=== PATIENT | female | born 1940 | race Caucasian/White ===

== ENCOUNTER 2021-06-10 14:37 | Inpatient (IN) | payer MEDICARE, BC ==
[~2021-06-10] VITALS: Ht 160 cm; Wt 55.3 kg
--- NOTE | 2021-06-10 15:00 | NUR ---
ASSUME PT CARE, WAS BIBRA, WAS C/O SUDDEN ONSET CHEST PAIN WHILE DRIVING GOINT TO HER PMD APPOINTMENT. 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 GOWNED AND PLACED ON MONITOR. VSS. AWAITING MD BARRETT.
--- NOTE | 2021-06-10 15:01 | NUR ---
IV LINE STARTED BLOOD DRAWN AND SENT TO LAB.
[2021-06-10 15:16] LABS: BASOPHILS % (AUTO) 0.5 % (0.0-2.0); EOSINOPHILS % (AUTO) 0.7 % (0.0-6.0); HEMATOCRIT 41 % (33-45); HEMOGLOBIN 13.6 g/dL (11.5-14.8); LYMPHOCYTES # (AUTO) 1.2 K/uL (0.8-4.8); LYMPHOCYTES % (AUTO) 32.3 % (20.0-44.0); MEAN CORPUSCULAR HGB CONC 33 g/dl (31.0-36.0); MEAN CORPUSCULAR VOLUME 94 fL (82-100); MONOCYTES % (AUTO) 1.2 % (2.0-12.0); NEUTROPHILS # (AUTO) 2.5 K/uL (1.8-8.9); NEUTROPHILS % (AUTO) 65.3 % (43.0-81.0); PLATELET COUNT (AUTO) 223 K/uL (150-450); RED BLOOD CELL COUNT(AUTO) 4.37 MIL/uL (4.0-5.2); WHITE BLOOD COUNT (AUTO) 3.8 K/uL (4.3-11.0)
--- NOTE | 2021-06-10 15:22 | NUR ---
URINE SPECIMEN COLLECTED AND SENT TO LAB.
--- NOTE | 2021-06-10 15:23 | NUR ---
RADIOLOGY AT BEDSIDE FOR CHEST XRAY.
--- NOTE | 2021-06-10 15:41 | NUR ---
DR MUSA AT BEDSIDE FOR EVAL.
[2021-06-10 15:42] LABS: CALCIUM, SERUM 8.6 mg/dL (8.5-10.1); CARBON DIOXIDE 26 mmol/L (21-32); CHLORIDE 100 mmol/L (98-107); CREATININE 0.5 mg/dL (0.6-1.3); GLUCOSE 110 mg/dL (74-106); POTASSIUM 3.7 mmol/L (3.5-5.1); SODIUM SERUM 135 mmol/L (136-145); UREA NITROGEN, BLOOD 19 mg/dL (7-18)
--- NOTE | 2021-06-10 16:26 | NUR ---
Gemini bo in [facility] - 06/10/21 at 1630 by RACHEAL BLOOD SPECIMEN COLLECTED SENT TO LAB.
--- NOTE | 2021-06-10 17:15 | NUR ---
COVID SPECIMEN COLLECTED. SENT TO LAB.
[2021-06-10] MEDS ORDERED: METO25TA20 PO (17:21)
[2021-06-10] MEDS ORDERED: THYR90TA PO (17:21)
--- NOTE | 2021-06-10 17:38 | NUR ---
MOVE SHEET SUBMITTED AND CALLED FOR TELE BED.
[2021-06-10 17:41] LABS: MAGNESIUM 2.5 mg/dL (1.8-2.4)
--- NOTE | 2021-06-10 17:46 | NUR ---
U/S TECH AT BEDSIDE FOR LLE DUPLEX ULTRASOUND.
[2021-06-10] MEDS ORDERED: LORAZEPAM 1 MG TABLET PO ONE (21:00)
--- NOTE | 2021-06-10 21:45 | NUR ---
BED 324-1
--- NOTE | 2021-06-10 21:58 | NUR ---
REPORT GIVEN TO VÍCTOR EVERETT
[2021-06-10] MEDS ORDERED: LORAZEPAM 0.5 MG TABLET ONE (22:00)
[2021-06-10 22:30] VITALS: BP 116/52
--- NOTE | 2021-06-10 22:38 | NUR ---
PATIENT TRANSFERRED UNDER ACLS
--- NOTE | 2021-06-10 22:40 | NUR ---
INSURANCE SALES REPRESENTATIVE NOTE RECEIVED PT FROM E.[employer]ansoor VIA GURNEY TO RM.324-1 BY AUTOMATION QTP TESTER. PT A/OX3 WITH EASY FORGETFULNESS. SHE IS ABLE TO MAKE HER NEEDS KNOWN. RESPIRATIONS EVEN/UNLABORED, ON ROOM AIR AND [place] WELL. O2 SAT 95%. ABLE TO AMBULATE SLOWLY WITH STANDBY ASSIST. PROVIDED BEDSIDE COMMODE. IV SITE: R-AC #20G INTACT/PATENT/FLUSHES WELL. ORIENTED TO STAFF, ROOM AND SAFETY PROTOCOLS. PT VERBALIZED UNDERSTANDING. CONNECTED TO TELE MONITOR, READING SR, HR 98. PT IN NO ACUTE DISTRESS. SAFETY MEASURES IN PLACE, BED IN LOWEST LOCKED POSITION, S/R UPX2, CALL LIGHT WITHIN REACH. WILL CONT TO MONITOR.
[2021-06-11] VITALS (7 sets, daily range): BP systolic 91–116; BP diastolic 41–56
[2021-06-11] MEDS ORDERED: ONDANSETRON HCL/PF 4 MG/2 ML VIAL IVP PRN (03:00)
[2021-06-11] MEDS ORDERED: ACETAMINOPHEN 325 MG TABLET PO PRN (03:00)
[2021-06-11] MEDS: ENOXAPARIN SODIUM 40 MG/0.4 ML DISP.SYRIN SQ SCH ×2 (03:19→21:16)
--- NOTE | 2021-06-11 03:48 | NUR ---
RN NOTE REPORTED CRITICAL LAB RESULT OF TROPONIN 118 TO ON-CALL CHRISTIANA BURDICK
[2021-06-11 05:25] LABS: THYROID STIMULATING HORMONE 0.142 uIU/mL (0.358-3.74)
--- NOTE | 2021-06-11 06:45 | NUR ---
RN NOTE PT RESTING IN BED, EASILY AROUSABLE TO STIMULI. SHE DENIES PAIN AT THIS TIME. NO C/O CP DURING THE SHIFT. PT SLEPT WELL DURING THE NIGHT. ALL NEEDS ATTENDED TO. SAFETY MEASURES MAINTAINED.
--- NOTE | 2021-06-11 07:25 | NUR ---
ms rn received on bed, awake,alert,oriented x 3,came in for chest pain, denies at this time, sinus rythm on monitor,respirations even and unlabored,no sob noted,abdomen soft,positive bowel sounds, will monitor patient.
--- NOTE | 2021-06-11 09:20 | NUR ---
MS RN DUE MEDS GIVEN,TOLERATED WELL.
[2021-06-11] MEDS: METOPROLOL TARTRATE 25 MG TABLET PO SCH ×2 (09:39→17:00)
[2021-06-11] MEDS: THYROID 30 MG TABLET PO SCH (09:39)
--- NOTE | 2021-06-11 11:00 | NUR ---
MS RN WAS SEEN BY DR. STAPLETON W/ ORD FOR CTPULMO ANGIO.
--- NOTE | 2021-06-11 11:45 | NUR ---
VÍCTOR NOTE PT REPORTS ALLERGIC TO GLUTEN. OBTAINED ORDER FOR GLUTEN FREE DIET Addendum: 06/12/21 at 0644 by PATRICIA GARCIA RN WRONG TIME
--- NOTE | 2021-06-11 14:00 | NUR ---
MS RN WAS SEEN BY , WAITING FOR ORDERS.
--- NOTE | 2021-06-11 16:00 | NUR ---
MS RN DR. PICHARDO WANTED TO HYAVE CT ANGIO OF HEARTH W/ 3D IMAGE INSTEAD OF PULMO ANGIO, PATIENT IS AWARE.
[2021-06-11] MEDS ORDERED: IV NS 0.9% 250 ML IV ONE ×2 (17:00→17:16)
--- NOTE | 2021-06-11 17:05 | NUR ---
MS RN PATIENT WENT DOWN FOR PROCEDURE,NO DISTRESS NOTED.
[2021-06-11] MEDS ORDERED: IOHEXOL-350 100 ML VIAL IV ONE (17:16)
[2021-06-11] MEDS ORDERED: CT SWABBABLE VALVE TRANS SET 1 EA INFUS.SET MC ONE (17:16)
[2021-06-11] MEDS ORDERED: METOPROLOL TARTRATE INJ 5 MG/5 ML AMPUL ONE (17:23)
[2021-06-11] MEDS ORDERED: METOPROLOL TARTRATE INJ 5 MG/5 ML AMPUL IVP PRN (17:30)
--- NOTE | 2021-06-11 19:00 | NUR ---
ms rn on bed, no distress noted,all needs attended.
--- NOTE | 2021-06-11 19:20 | NUR ---
RN NOTE PT AWAKE IN BED, WATCHING TV. ABLE TO MAKE NEEDS KNOWN. SHE DENIES ANY CHEST PAIN. RESPIRATIONS EVEN/UNLABORED. ASSIST WITH ADL'S PROVIDED NEEDED. SAFETY MEASURES IN PLACE. WILL CONT TO MONITOR.
--- NOTE | 2021-06-11 23:45 | NUR ---
RN NOTE PT REPORTS ALLERGIC TO GLUTEN. OBTAINED ORDER FOR GLUTEN FREE DIET
--- NOTE | 2021-06-11 23:59 | NUR ---
RN NOTE PT C/O ITCHING TO ARMS/LEGS AND REQUESTING FOR BENADRYL. REPORTED TO ONCALL CHRISTIANA BURDICK WITH ORDER BENADRYL 25MG PO ONCE.
[2021-06-12] MEDS ORDERED: diphenhydrAMINE HCL 25 MG CAPSULE PO ONE
[2021-06-12 00:02] VITALS: BP 116/56
[2021-06-12 04:00] VITALS: BP 105/59
[2021-06-12] MEDS: THYROID 30 MG TABLET PO SCH (06:25)
--- NOTE | 2021-06-12 06:41 | NUR ---
RN NOTE PT RESTING IN BED, EASILY AROUSABLE TO STIMULI. SHE DENIES ANY PAIN. DENIES SOB. TELE MONITOR READING SR, HR 80. PT IN NO ACUTE DISTRESS. SAFETY MEASURES MAINTAINED.
--- NOTE | 2021-06-12 07:20 | NUR ---
ms rn received on bed, awake,alert, oriented x4,not in any form of distress, respirations even and unlabored,no sob noted, lungs are clear,abdomen soft,positive bowel sounds,denies pain at this time, will monitor patient's condition, will monitor pt.
[2021-06-12 07:21] LABS: BASOPHILS % (AUTO) 0.2 % (0.0-2.0); EOSINOPHILS % (AUTO) 4.3 % (0.0-6.0); HEMATOCRIT 36 % (33-45); HEMOGLOBIN 12.5 g/dL (11.5-14.8); LYMPHOCYTES % (AUTO) 11.7 % (20.0-44.0); MEAN CORPUSCULAR HGB CONC 35 g/dl (31.0-36.0); MEAN CORPUSCULAR VOLUME 93 fL (82-100); MONOCYTES # (AUTO) 0.5 K/uL (0.1-1.30); MONOCYTES % (AUTO) 5.5 % (2.0-12.0); NEUTROPHILS # (AUTO) 6.4 K/uL (1.8-8.9); NEUTROPHILS % (AUTO) 78.3 % (43.0-81.0); PLATELET COUNT (AUTO) 166 K/uL (150-450); RED BLOOD CELL COUNT(AUTO) 3.89 MIL/uL (4.0-5.2); WHITE BLOOD COUNT (AUTO) 8.2 K/uL (4.3-11.0)
[2021-06-12 08:00] VITALS: BP 127/60
--- NOTE | 2021-06-12 09:30 | NUR ---
ms rn breakfast served,due meds given,tolerated well.all needs attended.
--- NOTE | 2021-06-12 10:00 | NUR ---
ms rn was seen by dr. schaeffer, for d/c today.
[2021-06-12] MEDS ORDERED: ASPI-1169 PO (10:12)
[2021-06-12] MEDS ORDERED: NITR0.4T SL (10:12)
[2021-06-12] MEDS ORDERED: ATOR20TA PO (10:21)
[2021-06-12 10:31] VITALS: BP 127/60
[2021-06-12] MEDS: METOPROLOL TARTRATE 25 MG TABLET PO SCH (10:31)
--- NOTE | 2021-06-12 11:20 | NUR ---
ms rn was seen by dr. fifi de los santos/ order to go home today.
[2021-06-12 11:56] LABS: CALCIUM, SERUM 8.1 mg/dL (8.5-10.1); CREATININE 0.6 mg/dL (0.6-1.3); PHOSPHORUS 2.3 mg/dL (2.5-4.9); POTASSIUM 3.9 mmol/L (3.5-5.1)
--- NOTE | 2021-06-12 14:00 | NUR ---
ms rn patient agreed to go home w/ home health,waiting for her ride.
--- NOTE | 2021-06-12 14:15 | NUR ---
ms psych rn instruction given, went home , picked up by friend,no distress noted.
[2021-06-12] MEDS ORDERED: K PHOS NEUTRAL 250 MG TABLET PO ONE (16:00)
== END 2021-06-12 14:30 | disposition home or self-care (01) | DRG 311 ==
LOC: ER 14:40 → TELE 22:10
PROVIDERS: ADMIT Internal Medicine; ATTEND Internal Medicine
DX: I20.9 Angina pectoris, unspecified (principal); I10 Essential (primary) hypertension; Z79.899 Other long term (current) drug therapy; E03.9 Hypothyroidism, unspecified; E78.5 Hyperlipidemia, unspecified; F41.9 Anxiety disorder, unspecified; Z20.822 Contact with and (suspected) exposure to COVID-19; R77.8 Other specified abnormalities of plasma proteins
CPT/HCPCS: 36415; 71045-TC; 75574; 80048-TC; 80061-TC; 83735-TC; 83880; 84100-TC; 84443-TC; 84484-TC; 85025-TC; 85378-TC; 87081-TC; 93307-TC; 93971-TC; C9803; G0378; J1650; J3490; J7050; Q0163; Q9967